=== PATIENT | female | born 1995 | race Two or more races ===

== ENCOUNTER 2022-06-07 07:04 | Observation (INO) | payer OTHER ==
[2022-06-07 08:30] VITALS: RESP 18; BMI 26.1
[2022-06-07] MEDS ORDERED: MAG HYDROX/AL HYDROX/SIMETH 30 ML UNIT-DOSE CUP PO ONE (08:46)
[2022-06-07] MEDS ORDERED: FAMOTIDINE 20 MG TABLET PO ONE (08:46)
[2022-06-07] MEDS ORDERED: FAMOTIDINE 20 MG TABLET ONE (09:03)
[2022-06-07] MEDS ORDERED: MAG HYDROX/AL HYDROX/SIMETH 30 ML UNIT-DOSE CUP ONE (09:03)
[2022-06-07 09:17] LABS: HEMATOCRIT 32.9 % (32.4-45.2); HEMOGLOBIN 10.5 GM/dL (10.7-15.3); MCH 28.4 pg (25.7-33.7); MEAN CELL VOLUME 88.9 fl (80-96); MEAN PLT VOLUME 11.7 fl (7.5-11.1); PLATELET COUNT 191 10^3/uL (134-434); RDW 13.7 % (11.6-15.6); WHITE BLOOD COUNT 16.1 K/mm3 (4.0-10.0)
[2022-06-07 09:34] LABS: CHLORIDE 113 mmol/L (98-107); SODIUM 141 mmol/L (136-145)
[2022-06-07 09:36] LABS: ANION GAP 4 MMOL/L (8-16); BLOOD UREA NITROGEN 9.6 mg/dL (7-18); CALCIUM 8.2 mg/dL (8.5-10.1); CO2 24 mmol/L (21-32); GLUCOSE,RANDOM 75 mg/dL (74-106); LIPASE 70 U/L (73-393)
[2022-06-07 09:37] LABS: ALBUMIN 2.5 g/dl (3.4-5.0)
[2022-06-07 09:38] LABS: CREATININE 0.6 mg/dL (0.55-1.3); SGOT/AST 17 U/L (15-37); SGPT/ALT 22 U/L (13-61)
[2022-06-07 09:40] LABS: TOT PROT 6.2 g/dl (6.4-8.2)
[2022-06-07 09:41] LABS: BILIRUBIN,TOTAL 0.1 mg/dL (0.2-1)
[2022-06-07 09:42] LABS: ALK PHOS 153 U/L (45-117)
[2022-06-07 10:20] LABS: ANISOCYTOSIS 0; MACROCYTOSIS 0
[2022-06-07 11:06] LABS: ACTIVATED PTT 24.4 SECONDS (25.2-36.5); INR 0.83 (0.83-1.09); PROTHROMBIN TIME (PATIENT) 9.5 SEC (9.7-13.0)
[2022-06-07 16:33] LABS: EPI CELLS >36 /uL (0-25.1); HYALINE CASTS 4 /uL (0-3.1); PH,URINE 6.5 (5.0-8.0); URINE APPEARANCE CLEAR; URINE BACTERIA 4264 /uL (0-1359); URINE BILIRUBIN NEGATIVE (NEGATIVE); URINE COLOR YELLOW; URINE GLUCOSE (UA) NEGATIVE (NEGATIVE); URINE KETONE NEGATIVE (NEGATIVE); URINE LEUK ESTERASE 2+ (NEGATIVE); URINE NITRITE NEGATIVE (NEGATIVE); URINE PROTEIN 1+ (NEGATIVE); URINE RBC 11 /uL (0-23.9); URINE UROBILINOGEN 0.2 mg/dL (0.2-1.0); URINE WBC 100 /uL (0-25.8)
[2022-06-07 18:35] VITALS: BP 126/74; PULSE 74; TEMP 97.8
== END 2022-06-07 21:18 | disposition home or self-care (01) ==
LOC: JER 07:04 → JERBED 10:40
PROVIDERS: ADMIT Internal Medicine; ATTEND Internal Medicine
DX: O26.93 Pregnancy related conditions, unspecified, third trimester (principal); Z3A.34 34 weeks gestation of pregnancy; R07.89 Other chest pain
CPT/HCPCS: 36415; 71046-TC-FY; 71275-TC; 80053; 81003; 82570; 83690; 84156; 84484; 85025; 85610; 85730; 87086; 93005; 93010; 93306-TC; 93970-TC; 99285-25; C9803-CS; G0378; Q9967; U0003; U0005

== ENCOUNTER 2022-06-12 09:11 | Inpatient (IN) | payer OTHER ==
[2022-06-12 10:59] LABS: EPI CELLS 32 /uL (0-25.1); HYALINE CASTS 0 /uL (0-3.1); URINE APPEARANCE CLEAR; URINE BACTERIA 1198 /uL (0-1359); URINE BILIRUBIN NEGATIVE (NEGATIVE); URINE COLOR YELLOW; URINE GLUCOSE (UA) NEGATIVE (NEGATIVE); URINE KETONE NEGATIVE (NEGATIVE); URINE LEUK ESTERASE 1+ (NEGATIVE); URINE NITRITE NEGATIVE (NEGATIVE); URINE PROTEIN 1+ (NEGATIVE); URINE RBC 4 /uL (0-23.9); URINE UROBILINOGEN 0.2 mg/dL (0.2-1.0); URINE WBC 31 /uL (0-25.8)
[2022-06-12 11:17] LABS: RETICULOCYTES 2.23 % (0.5-1.5)
[2022-06-12 11:32] LABS: CALCIUM 8.7 mg/dL (8.5-10.1)
[2022-06-12 11:33] LABS: ALBUMIN 2.2 g/dl (3.4-5.0); BLOOD UREA NITROGEN 11.4 mg/dL (7-18)
[2022-06-12 11:35] LABS: CREATININE 0.5 mg/dL (0.55-1.3); URIC ACID 3.1 mg/dL (2.6-7.2)
[2022-06-12 11:37] LABS: TOT PROT 5.6 g/dl (6.4-8.2)
[2022-06-12 11:39] LABS: BILIRUBIN,TOTAL 0.1 mg/dL (0.2-1)
[2022-06-12 12:32] LABS: BASO % 0.3 % (0-2.0); HEMATOCRIT 34.2 % (32.4-45.2); HEMOGLOBIN 10.9 GM/dL (10.7-15.3); LYMPH % 26.9 % (8-40); MCHC 31.8 g/dl (32.0-36.0); MEAN CELL VOLUME 88.2 fl (80-96); MEAN PLT VOLUME 11.1 fl (7.5-11.1); MONO % 8.2 % (3.8-10.2); NEUT % 63.6 % (42.8-82.8); PLATELET COUNT 182 10^3/uL (134-434); RBC 3.87 M/mm3 (3.60-5.2); RDW 13.3 % (11.6-15.6); WHITE BLOOD COUNT 13.7 K/mm3 (4.0-10.0)
[2022-06-12 12:40] LABS: INR 0.84 (0.83-1.09); PROTHROMBIN TIME (PATIENT) 9.6 SEC (9.7-13.0)
[2022-06-12 12:42] LABS: ACTIVATED PTT 28.7 SECONDS (25.2-36.5)
[2022-06-12 12:55] LABS: CALCIUM 9.1 mg/dL (8.5-10.1)
[2022-06-12 12:56] LABS: BLOOD UREA NITROGEN 12.3 mg/dL (7-18)
[2022-06-12 12:59] LABS: CREATININE 0.6 mg/dL (0.55-1.3)
[2022-06-12] MEDS ORDERED: CEFAZOLIN SODIUM 2 GM in DEXTROSE 5%-WATER 100 ML IVPB ONE (13:33)
[2022-06-12] MEDS ORDERED: CEFAZOLIN SODIUM 2 GM VIAL ONE (13:43)
[2022-06-12] MEDS ORDERED: OXYTOCIN 30 UNITS in 0.9% NS 30 UNIT/500 ML INFUS.BAG IVPB ONE (13:43)
[2022-06-12] MEDS ORDERED: DEXTROSE 5%-LACTATED RINGERS 1,000 ML IV SCH (13:45)
[2022-06-12] MEDS ORDERED: OXYTOCIN 30 UNITS in 0.9% NS 30 UNIT/500 ML INFUS.BAG IVPB SCH (13:45)
[2022-06-12 14:46] VITALS: BMI 27.1
[2022-06-12] MEDS ORDERED: CEFAZOLIN 1 GM in DEXTROSE 5%-WATER - 50 ML IVPB SCH (18:00)
[2022-06-12] MEDS ORDERED: ceFAZolin SODIUM 1 GM VIAL ONE (18:14)
[2022-06-12] MEDS ORDERED: FENTANYL/BUPIVACAINE/NS/PF - PCEA - 50 ML DISP.SYRIN EP ONE (20:26)
[2022-06-12] MEDS ORDERED: NALOXONE HCL 0.4 MG/ML VIAL IVPUSH PRN (21:23)
[2022-06-12] MEDS ORDERED: FENTANYL/BUPIVACAINE/NS/PF - PCEA - 50 ML DISP.SYRIN EP SCH (21:30)
[2022-06-12] MEDS ORDERED: AMPICILLIN - 1 GM in SODIUM CHLORIDE 100 ML IVPB SCH (22:00)
[2022-06-12] MEDS ORDERED: AMPICILLIN SODIUM 1 GM VIAL ONE (22:11)
[2022-06-13] MEDS ORDERED: ELECTROLYTE-148 SOLN 500 ML IV ONE
[2022-06-13] MEDS ORDERED: CITRIC ACID/SODIUM CITRATE 30 ML UNIT-DOSE CUP PO ONE
[2022-06-13] MEDS ORDERED: ELECTROLYTE-148 SOLN 1,000 ML IV SCH (00:30)
[2022-06-13] MEDS ORDERED: ceFAZolin SODIUM 1 GM VIAL ONE ×2 (00:38→00:56)
[2022-06-13] MEDS: OXYTOCIN 20 UNITS in 0.9% NS 20 UNIT/1,000 ML INFUS.BAG IV SCH ×2 (00:55→03:00)
[2022-06-13] MEDS ORDERED: ONDANSETRON 4 MG/2 ML VIAL ONE (00:56)
[2022-06-13] MEDS ORDERED: PHENYLEPHRINE HCL 10 MG/1 ML SINGLE DOSE VIAL ONE (00:56)
[2022-06-13] MEDS ORDERED: KETOROLAC TROMETHAMINE 30 MG/1 ML VIAL ONE (00:56)
[2022-06-13] MEDS ORDERED: OXYTOCIN 10 UNITS/ML VIAL ONE (00:56)
[2022-06-13] MEDS ORDERED: DEXAMETHASONE SOD PHOSPHATE 4 MG/1 ML VIAL ONE (00:56)
[2022-06-13] MEDS ORDERED: OXYTOCIN 20 UNITS in 0.9% NS 20 UNIT/1,000 ML INFUS.BAG IV ONE (02:44)
[2022-06-13] MEDS ORDERED: IBUPROFEN 800 MG/8 ML IJ IVPB ONE ×3 (04:06→10:52)
[2022-06-13] MEDS ORDERED: ACETAMINOPHEN 1000 MG/100 ML BAG IVPB PRN (07:02)
[2022-06-13] MEDS ORDERED: IBUPROFEN 600 MG TABLET (FP) PO PRN (07:02)
[2022-06-13] MEDS ORDERED: IBUPROFEN 800 MG/8 ML IJ IVPB PRN (07:02)
[2022-06-13] MEDS ORDERED: ACETAMINOPHEN 325 MG TABLET (FP) PO PRN (07:02)
[2022-06-13] MEDS ORDERED: SENNOSIDES/DOCUSATE COMBO (SENNA PLUS) TABLET (UD) PO PRN (07:02)
[2022-06-13] MEDS ORDERED: ONDANSETRON 4 MG/2 ML VIAL IVPB PRN (07:02)
[2022-06-13] MEDS ORDERED: OXYTOCIN 20 UNITS in 0.9% NS 20 UNIT/1,000 ML INFUS.BAG IV SCH (07:15)
[2022-06-13 08:46] LABS: HEMATOCRIT 29.9 % (32.4-45.2); HEMOGLOBIN 9.6 GM/dL (10.7-15.3); MCH 28.5 pg (25.7-33.7); MCHC 31.9 g/dl (32.0-36.0); MEAN CELL VOLUME 89.3 fl (80-96); MEAN PLT VOLUME 11.5 fl (7.5-11.1); PLATELET COUNT 158 10^3/uL (134-434); RBC 3.35 M/mm3 (3.60-5.2); RDW 13.6 % (11.6-15.6); WHITE BLOOD COUNT 24.4 K/mm3 (4.0-10.0)
[2022-06-13] MEDS ORDERED: CEFAZOLIN SODIUM 2 GM VIAL ONE (09:26)
[2022-06-13] MEDS ORDERED: SODIUM CHLORIDE 100 ML IVPB ONE (09:27)
[2022-06-13] MEDS: CEFAZOLIN SODIUM 2 GM in DEXTROSE 5%-WATER - 50 ML IVPB SCH ×2 (09:34→19:31)
[2022-06-13 09:35] LABS: ANISOCYTOSIS 0; HELMET CELLS 0; HOWELL-JOLLY BODIES 0; MACROCYTOSIS 0; OVALOCYTE 0; ROULEAU 0; SICKELED CELLS 0; TARGET CELLS 0; TEAR DROP CELLS 0; TOXIC GRANULATION 0
[2022-06-13] MEDS ORDERED: DEXTROSE 5%-LACTATED RINGERS 1,000 ML IV SCH (11:15)
[2022-06-13] MEDS ORDERED: CEFAZOLIN SODIUM 2 GM in DEXTROSE 5%-WATER 100 ML IVPB SCH (18:34)
[2022-06-13] MEDS: CEFAZOLIN SODIUM 2 GM in DEXTROSE 5%-WATER 100 ML IVPB SCH (18:59)
[2022-06-14] MEDS: oxyCODONE HCL 5 MG TABLET PO PRN ×2 (00:43→06:43)
[2022-06-14] MEDS: SIMETHICONE 80 MG TAB.CHEW (FP) PO PRN (00:43)
[2022-06-14] MEDS: CEFAZOLIN SODIUM 2 GM in DEXTROSE 5%-WATER 100 ML IVPB SCH (01:51)
[2022-06-14] MEDS ORDERED: BISACODYL 10 MG SUPP.RECT RC PRN (07:03)
[2022-06-14] MEDS ORDERED: ACETAMINOPHEN 325 MG TABLET (FP) PO PRN (09:12)
[2022-06-14 09:16] LABS: BASO % 0.3 % (0-2.0); EOS % 0.6 % (0-4.5); HEMATOCRIT 28.3 % (32.4-45.2); HEMOGLOBIN 9.1 GM/dL (10.7-15.3); MCH 28.5 pg (25.7-33.7); MEAN PLT VOLUME 11.4 fl (7.5-11.1); MONO % 5.3 % (3.8-10.2); NEUT % 73.8 % (42.8-82.8); PLATELET COUNT 163 10^3/uL (134-434); RBC 3.18 M/mm3 (3.60-5.2); RDW 13.4 % (11.6-15.6); WHITE BLOOD COUNT 16.1 K/mm3 (4.0-10.0)
[2022-06-14] MEDS ORDERED: ACETAMINOPHEN 500 MG TABLET (FP) PO PRN (09:23)
[2022-06-14] MEDS ORDERED: oxyCODONE HCL 5 MG TABLET PO PRN (09:31)
[2022-06-14] MEDS: KETOROLAC TROMETHAMINE 30 MG/1 ML VIAL IVPUSH SCH ×2 (10:57→18:41)
[2022-06-14] MEDS: DOCUSATE SODIUM 100 MG CAPSULE (FP) PO SCH ×2 (11:05→21:20)
[2022-06-14] MEDS: POLYETHYLENE GLYCOL (HEALTHYLAX) 3350 17 GM PACKET PO SCH (11:05)
[2022-06-15] MEDS: SIMETHICONE 80 MG TAB.CHEW (FP) PO PRN ×2 (03:24→10:52)
[2022-06-15] MEDS: IBUPROFEN 600 MG TABLET (FP) PO PRN ×2 (03:25→10:52)
[2022-06-15] MEDS: DOCUSATE SODIUM 100 MG CAPSULE (FP) PO SCH ×2 (10:52→21:13)
[2022-06-15] MEDS: POLYETHYLENE GLYCOL (HEALTHYLAX) 3350 17 GM PACKET PO SCH (10:53)
[2022-06-15 21:13] VITALS: RESP 18; TEMP 98.9
[2022-06-16] MEDS: SIMETHICONE 80 MG TAB.CHEW (FP) PO PRN (06:20)
[2022-06-16] MEDS: IBUPROFEN 600 MG TABLET (FP) PO PRN (06:20)
[2022-06-16] MEDS: DOCUSATE SODIUM 100 MG CAPSULE (FP) PO SCH (10:15)
[2022-06-16] MEDS: POLYETHYLENE GLYCOL (HEALTHYLAX) 3350 17 GM PACKET PO SCH (10:16)
[2022-06-16 11:10] VITALS: BP 137/90; PULSE 87
== END 2022-06-16 12:30 | disposition home or self-care (01) | DRG 540 ==
LOC: JDEL 09:11 → JLDR 12:00 → J3W 06-13 13:45
PROVIDERS: ADMIT Specialist; ATTEND Specialist
PROC: 10D00Z1 Extraction of Products of Conception, Low, Open Approach (ICD-10-PCS; principal; 2022-06-12)
PROC: 10907ZC Drainage of Amniotic Fluid, Therapeutic from Products of Conception, Via Natural or Artificial Opening (ICD-10-PCS; 2022-06-12)
PROC: 3E033VJ Introduction of Other Hormone into Peripheral Vein, Percutaneous Approach (ICD-10-PCS; 2022-06-12)
DX: O14.94 Unspecified pre-eclampsia, complicating childbirth (principal); O61.0 Failed medical induction of labor; O76 Abnormality in fetal heart rate and rhythm complicating labor and delivery; O62.9 Abnormality of forces of labor, unspecified; Z3A.35 35 weeks gestation of pregnancy; Z37.0 Single live birth
CPT/HCPCS: 36415; 80048; 80053; 81003; 82570; 82977; 83010; 84156; 84550; 85025; 85032; 85045; 85610; 85730; 86780; 86850; 86900; 86901; 88307-TC; C9803-CS; U0003; U0005